=== PATIENT | female | born 1950 | race Caucasian/White ===

== ENCOUNTER 2019-01-20 17:50 | Emergency (ER) | payer MEDICAID ==
[~2019-01-20] VITALS: Ht 149.9 cm; Wt 63.5 kg
[~2019-01-20 17:50] MED LIST: LISI-420 PO; SYN.075 PO
[2019-01-20 18:18] VITALS: BP 187/80
[2019-01-20 19:45] VITALS: BP 129/103
[2019-01-20] MEDS: KETOROLAC 30 MG/ML VIAL IM ONE (20:01)
[2019-01-20] MEDS: BACITRACIN OINT 500 UNITS/GM PKT TP ONE (20:01)
== END 2019-01-20 20:30 | disposition home or self-care (01) ==
LOC: MED 17:50
DX: S80.02XA Contusion of left knee, initial encounter (principal); E11.9 Type 2 diabetes mellitus without complications; K21.9 Gastro-esophageal reflux disease without esophagitis; I10 Essential (primary) hypertension; Z98.890 Other specified postprocedural states; Z86.39 Personal history of other endocrine, nutritional and metabolic disease; Z79.899 Other long term (current) drug therapy; W01.198A Fall on same level from slipping, tripping and stumbling with subsequent striking against other object, initial encounter; Y92.89 Other specified places as the place of occurrence of the external cause; Y93.89 Activity, other specified; Y99.8 Other external cause status
CPT/HCPCS: 29505; 73560; 96374; 99283; J1885

== ENCOUNTER 2019-05-26 15:56 | Emergency (ER) | payer MEDICAID ==
[~2019-05-26] VITALS: Ht 152.4 cm; Wt 64.9 kg
[2019-05-26 16:02] VITALS: BP 167/85
[2019-05-26 17:08] VITALS: BP 138/72
== END 2019-05-26 17:08 | disposition home or self-care (01) ==
LOC: MED 15:56
DX: R51 Headache (principal); L08.9 Local infection of the skin and subcutaneous tissue, unspecified; H92.02 Otalgia, left ear; E11.9 Type 2 diabetes mellitus without complications; K21.9 Gastro-esophageal reflux disease without esophagitis; I10 Essential (primary) hypertension; E07.9 Disorder of thyroid, unspecified; Z79.899 Other long term (current) drug therapy
CPT/HCPCS: 99283

== ENCOUNTER 2019-09-02 15:47 | Emergency (ER) | payer MEDICAID ==
[~2019-09-02] VITALS: Ht 149.9 cm; Wt 64.6 kg
[2019-09-02 15:50] VITALS: BP 131/67
[2019-09-02] MEDS ORDERED: NACL 0.9% 1,000 ML IV ONE (16:10)
--- NOTE | 2019-09-02 16:38 | NUR ---
69 Y/O FEMALE FROM HOME C/O OPEN WOUND TO LT FOOT/ANKLE SINCE YESTERDAY. NOTICABLE OPEN WOUNDS TO LT ANKLE. SKIN WARM AND DRY. ABLE TO AMBULATE WITHOUT ASSISTANCE. 9/10 ACHING/BURNING PAIN. RR EVEN AND UNLABORED. +2 PITTING EDEMA TO ANKLE. VSS. 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 MEDHX: HTN, DM, HYPOTHYROID
--- NOTE | 2019-09-02 16:40 | NUR ---
LAB AT BEDSIDE
--- NOTE | 2019-09-02 16:42 | NUR ---
X-RAY AY BEDSIDE
[2019-09-02 17:04] LABS: PROTHROMBIN TIME 9.7 secs (10.8-13.4)
[2019-09-02 17:10] LABS: ALBUMIN 3.2 g/dL (3.4-5.0); ANION GAP 13.1 (8-16); CREATININE 0.9 mg/dL (0.6-1.3); POTASSIUM 4.1 mmol/L (3.5-5.1); TOTAL BILIRUBIN 0.3 mg/dL (0.0-1.0)
[2019-09-02] MEDS ORDERED: cefTRIAXone 1,000 MG VIAL ONE (17:17)
--- NOTE | 2019-09-02 17:37 | NUR ---
RESTING IN BED WITH EYES CLOSED, AROUSABLE TO NAME. VSS. WILL CONTINUE TO MONITOR
[2019-09-02 17:52] LABS: BASOPHILS % (AUTO) 0.6 % (0.0-2.0); EOSINOPHILS # (AUTO) 0.1 K/uL (0-0.4); EOSINOPHILS % (AUTO) 1.6 % (0.0-4.0); HEMOGLOBIN 12.2 g/dL (12.0-16.0); LYMPHOCYTES # (AUTO) 2.3 K/uL (2.5-16.5); MEAN CORPUSCULAR HEMOGLOBIN 36 pg (27-31); MEAN CORPUSCULAR HGB CONC 34 g/dL (33-37); MEAN CORPUSCULAR VOLUME 105.7 fL (80-94); MONOCYTES # (AUTO) 0.5 K/uL (0.8-1.0); MONOCYTES % (AUTO) 8.1 % (1.7-9.3); NEUTROPHILS % (AUTO) 50.7 % (42.2-75.2); PLATELET COUNT (AUTO) 164 K/uL (140-450); RED BLOOD CELL COUNT(AUTO) 3.41 MIL/uL (4.20-5.40); RED CELL DISTRIBUTION WIDTH 12.3 % (11.6-13.7)
[2019-09-02 18:48] VITALS: BP 129/64
--- NOTE | 2019-09-02 18:48 | NUR ---
Patient discharged with v/s stable. Written and verbal after care instructions given and explained in greenlandic by myself. Patient alert, oriented and verbalized understanding of instructions. Ambulatory with steady gait. All questions addressed prior to discharge. ID band removed. Patient advised to follow up with PMD. Rx of Ibuprofen 600mg,Keflex 500mg, Antivert 12.5mg and Bactrim DS 800mg-160mg given. Patient educated on indication of medication including possible reaction and side effects. Opportunity to ask questions provided and answered.
== END 2019-09-02 18:48 | disposition home or self-care (01) ==
LOC: MED 15:47
DX: L03.116 Cellulitis of left lower limb (principal); E11.65 Type 2 diabetes mellitus with hyperglycemia; I10 Essential (primary) hypertension; K21.9 Gastro-esophageal reflux disease without esophagitis; E07.9 Disorder of thyroid, unspecified; Z79.899 Other long term (current) drug therapy
CPT/HCPCS: 36415; 73610; 80053; 83605; 85025; 85610; 85651; 85730; 87040; 96361; 96365; 99284; J0696; J7030